=== PATIENT | male | born 1960 | race Caucasian/White ===

== ENCOUNTER 2016-12-28 12:08 | Emergency (ER) | payer OTHER ==
[~2016-12-28] VITALS: Ht 177.8 cm; Wt 83.5 kg
--- NOTE | 2016-12-28 12:10 | NUR ---
PT LEFT SIDED FACE/NECK NUMBNESS X 1 MONTH. PLACED ON MONITOR. VSS. AWAITING MD ORDER
--- NOTE | 2016-12-28 12:52 | NUR ---
DR ALFORD AT BEDSIDE FOR EVAL
--- NOTE | 2016-12-28 13:00 | NUR ---
PT TAKEN TO CT VIA WC
[2016-12-28 14:24] VITALS: BP 123/78
== END 2016-12-28 14:25 | disposition home or self-care (01) ==
LOC: ER 12:12
DX: M54.2 Cervicalgia (principal); F90.9 Attention-deficit hyperactivity disorder, unspecified type
CPT/HCPCS: 72125; 99284; A4606; Z7610